=== PATIENT | female | born 1990 | race Hispanic/Latino ===

== ENCOUNTER 2017-11-18 03:09 | Inpatient (IN) | payer MEDICAID ==
[~2017-11-18] VITALS: Ht 149.9 cm; Wt 76.2 kg
[2017-11-18 03:35] LABS: APPEARANCE,URINE Turbid (CLEAR); BILIRUBIN,URINE Negative (NEGATIVE); COLOR,URINE Dark Yellow (YELLOW); GLUCOSE, URINE (UA) Negative (NEGATIVE); KETONES,URINE 15 mg/dL (NEGATIVE); LEUKOCYTE ESTERASE ,URINE Moderate (NEGATIVE); NITRATE,URINE Negative (NEGATIVE); OCCULT BLOOD,URINE Large (NEGATIVE); PH,URINE 6.5 (5.0-8.0); PROTEIN,URINE POS 1+ (NEGATIVE)
[2017-11-18 03:41] LABS: BACTERIA,URINE Many /HPF (None Seen); SQUAMOUS EPITHELIAL CELL,UR 30-50 /HPF (0-2)
[2017-11-18 03:42] LABS: RBC,URINE 0-1 /HPF (0-1)
[2017-11-18] MEDS ORDERED: LACTATED RINGERS 1000ML 1,000 ML IV PRN (03:48)
[2017-11-18] MEDS ORDERED: AMPICILLIN 2GM+NS 100ML 100 ML IV ONE (03:56)
[2017-11-18] MEDS ORDERED: LACTATED RINGERS 1000ML 1,000 ML IV ONE ×2 (03:56→04:28)
[2017-11-18 04:00] LABS: HEMATOCRIT 38.9 % (36-48); MEAN CORPUSCULAR HEMOGLOBIN 27.7 pg (27.0-33.0); MEAN CORPUSCULAR HGB CONC 33.7 g/dL (32.0-36.0); PLATELET COUNT (AUTO) 203 K/uL (130-400); RED BLOOD CELL COUNT(AUTO) 4.74 MIL/uL (4.00-5.50); RED CELL DISTRIBUTION WIDTH 29.2 % (11.0-15.5); WHITE BLOOD COUNT (AUTO) 12.5 K/uL (4.8-10.8)
[2017-11-18] MEDS ORDERED: AMPICILLIN 2GM+NS 100ML 100 ML IV SCH (04:00)
[2017-11-18] MEDS ORDERED: OXYTOCIN-LR 20 UNITS/1000 ML 1,000 ML IV SCH (04:15)
[2017-11-18] MEDS ORDERED: PROMETHAZINE HCL 25 MG/ML 1ML AMPULE IM SCH (04:15)
[2017-11-18] MEDS ORDERED: MEPERIDINE-PF 50 MG/ML SYG IVP ONE (04:15)
[2017-11-18] MEDS ORDERED: OXYTOCIN 10 USP UNITS/ML ONE ×2 (04:28→07:29)
[2017-11-18] MEDS ORDERED: BENZOCAINE/LANOLIN/ALOE VERA 60 ML AEROSOL TP PRN (05:15)
[2017-11-18] MEDS ORDERED: DIPH,PERTUSS(ACELL),TET VAC/PF 0.5 ML VIAL IM PRN (05:15)
[2017-11-18] MEDS ORDERED: WITCH HAZEL 1 PAD TP PRN (05:15)
[2017-11-18] MEDS ORDERED: HYDROCODONE/ACETAMINOPHEN 5/325 MG TAB PO PRN (05:15)
[2017-11-18] MEDS ORDERED: LANOLIN 30GM OINTMENT TP PRN (05:15)
[2017-11-18] MEDS: IBUPROFEN 600 MG TABLET PO PRN ×2 (06:03→17:07)
[2017-11-18 07:38] VITALS: BP 116/65
[2017-11-18] MEDS ORDERED: AMPICILLIN 1GM+NS 50ML 50 ML IV SCH (08:00)
[2017-11-18] MEDS: ACETAMINOPHEN-CODEINE 300/30MG TAB PO PRN ×2 (09:18→19:52)
[2017-11-18] MEDS: DOCUSATE SODIUM 100 MG CAP PO SCH ×2 (09:18→21:45)
[2017-11-18 09:29] LABS: HEMATOCRIT 36.4 % (36-48); MEAN CORPUSCULAR HGB CONC 32.7 g/dL (32.0-36.0); MEAN CORPUSCULAR VOLUME 82.5 fL (79-99); PLATELET COUNT (AUTO) 198 K/uL (130-400); RED BLOOD CELL COUNT(AUTO) 4.41 MIL/uL (4.00-5.50); RED CELL DISTRIBUTION WIDTH 28.7 % (11.0-15.5); WHITE BLOOD COUNT (AUTO) 15.2 K/uL (4.8-10.8)
[2017-11-18 11:26] VITALS: BP 110/50
[2017-11-18 15:37] VITALS: BP 104/60
[2017-11-18 19:23] VITALS: BP 115/61
[2017-11-18 23:22] VITALS: BP 103/68
[2017-11-19] MEDS: IBUPROFEN 600 MG TABLET PO PRN ×3 (03:15→20:49)
[2017-11-19 03:41] VITALS: BP 101/53
[2017-11-19] MEDS: ACETAMINOPHEN-CODEINE 300/30MG TAB PO PRN ×3 (04:15→18:41)
[2017-11-19 05:26] LABS: HEMATOCRIT 36.1 % (36-48); MEAN CORPUSCULAR HEMOGLOBIN 27.4 pg (27.0-33.0); MEAN CORPUSCULAR HGB CONC 32.8 g/dL (32.0-36.0); MEAN CORPUSCULAR VOLUME 83.3 fL (79-99); PLATELET COUNT (AUTO) 184 K/uL (130-400); RED BLOOD CELL COUNT(AUTO) 4.34 MIL/uL (4.00-5.50); WHITE BLOOD COUNT (AUTO) 13.4 K/uL (4.8-10.8)
[2017-11-19 07:20] VITALS: BP 118/67
[2017-11-19 07:38] LABS: HEPATITIS Bs ANTIGEN SCREEN P Negative (Negative)
[2017-11-19] MEDS: DOCUSATE SODIUM 100 MG CAP PO SCH ×2 (08:27→20:49)
[2017-11-19] MEDS: CLOTRIMAZOLE/BETAMETHASONE DIP 45 GM CREAM.GM. TP SCH (09:14)
[2017-11-19 11:31] VITALS: BP 105/63
[2017-11-19 15:56] VITALS: BP 105/59
[2017-11-19 20:41] VITALS: BP 114/63
[2017-11-19 23:48] VITALS: BP 131/85
[2017-11-20] MEDS: ACETAMINOPHEN-CODEINE 300/30MG TAB PO PRN (03:23)
[2017-11-20 05:00] VITALS: BP 126/73
[2017-11-20 07:58] VITALS: BP 100/61
[2017-11-20] MEDS: DOCUSATE SODIUM 100 MG CAP PO SCH (08:47)
[2017-11-20] MEDS: CLOTRIMAZOLE/BETAMETHASONE DIP 45 GM CREAM.GM. TP SCH (08:54)
[2017-11-20 11:29] VITALS: BP 122/74
[2017-11-20] MEDS: IBUPROFEN 600 MG TABLET PO PRN (11:51)
== END 2017-11-20 13:00 | disposition home or self-care (01) | DRG 560 ==
LOC: EDH 03:09 → LDH 03:10 → OBSVTOIN 03:10 → WSH 07:19
PROVIDERS: ADMIT Obstetrics & Gynecology; ATTEND Obstetrics & Gynecology
PROC: 10E0XZZ Delivery of Products of Conception, External Approach (ICD-10-PCS; principal; 2017-11-18)
PROC: 10907ZC Drainage of Amniotic Fluid, Therapeutic from Products of Conception, Via Natural or Artificial Opening (ICD-10-PCS; 2017-11-18)
DX: O99.824 Streptococcus B carrier state complicating childbirth (principal); Z37.0 Single live birth; Z3A.38 38 weeks gestation of pregnancy
CPT/HCPCS: 36415; 81001; 85027; 86592; 86850; 86900; 86901; 87340; 90715; J0290; J2175; J2550; J2590; J7120

== ENCOUNTER 2017-11-23 03:48 | Emergency (ER) | payer MEDICAID ==
[2017-11-23 04:13] LABS: APPEARANCE,URINE Clear (CLEAR); BILIRUBIN,URINE Negative (NEGATIVE); COLOR,URINE Yellow (YELLOW); GLUCOSE, URINE (UA) Negative (NEGATIVE); KETONES,URINE Negative (NEGATIVE); LEUKOCYTE ESTERASE ,URINE Trace (NEGATIVE); NITRATE,URINE Negative (NEGATIVE); OCCULT BLOOD,URINE Large (NEGATIVE); PROTEIN,URINE POS 2+ (NEGATIVE)
[2017-11-23 04:36] LABS: BACTERIA,URINE Few /HPF (None Seen); RBC,URINE 26-50 /HPF (0-1)
[2017-11-23 04:54] LABS: BASOPHILS % (AUTO) 0.5 % (0.0-5.0); EOSINOPHILS % (AUTO) 3.8 % (0.0-8.0); HEMATOCRIT 33.5 % (36-48); LYMPHOCYTES % (AUTO) 26.1 % (21.0-51.0); MEAN CORPUSCULAR HEMOGLOBIN 27.7 pg (27.0-33.0); MEAN CORPUSCULAR HGB CONC 33.5 g/dL (32.0-36.0); MEAN CORPUSCULAR VOLUME 82.7 fL (79-99); MONOCYTES % (AUTO) 7.6 % (3.0-13.0); PLATELET COUNT (AUTO) 219 K/uL (130-400); RED BLOOD CELL COUNT(AUTO) 4.05 MIL/uL (4.00-5.50); WHITE BLOOD COUNT (AUTO) 7.5 K/uL (4.8-10.8)
[2017-11-23 05:07] LABS: INR 0.93 (0.85-1.15); PARTIAL THROMBOPLASTIN TIME 30.3 SEC (26.3-35.5); PROTHROMBIN TIME 9.8 SEC (9.6-11.6)
[2017-11-23 05:17] LABS: CREATININE 0.7 mg/dL (0.5-1.5); POTASSIUM 3.4 mmol/L (3.5-5.1)
[2017-11-23 05:21] LABS: ALBUMIN 2.5 g/dL (3.5-5.0); BILIRUBIN,TOTAL 0.2 mg/dL (0.2-1.0); TOTAL PROTEIN, SERUM 6.3 g/dL (6.0-8.3)
[2017-11-23] MEDS ORDERED: IOPAMIDOL-370 100 ML VIAL IV ONE (06:08)
[2017-11-23] MEDS ORDERED: ACETAMINOPHEN 325 MG TAB ONE (07:42)
== END 2017-11-23 08:09 | disposition home or self-care (01) ==
LOC: EDH 03:48
DX: R07.9 Chest pain, unspecified (principal); R00.1 Bradycardia, unspecified; D64.9 Anemia, unspecified; Z90.49 Acquired absence of other specified parts of digestive tract; Z79.899 Other long term (current) drug therapy
CPT/HCPCS: 36415; 71045; 71275; 80053; 81001; 81025; 82550; 83690; 84484; 85025; 85378; 85610; 85730; 93005; 99291; Q9967

== ENCOUNTER 2021-04-02 10:16 | Emergency (ER) | payer MEDICAID, OTHER ==
[~2021-04-02] VITALS: Ht 149.9 cm; Wt 77.1 kg
[2021-04-02 10:17] VITALS: BP 123/146
[2021-04-02] MEDS ORDERED: ZOSYN 3.375GM+NS 50ML 50 ML IV SCH (11:30)
[2021-04-02] MEDS ORDERED: MEPERIDINE-PF 50 MG/ML SYG IVP ONE (11:30)
[2021-04-02] MEDS ORDERED: ONDANSETRON 4MG INJ IVP ONE (11:30)
[2021-04-02] MEDS ORDERED: ZOSYN 3.375GM+NS 50ML 3.38 GM in 0.9%NACL 50ML 50 ML IV ONE (11:30)
[2021-04-02] MEDS ORDERED: KETOROLAC 30MG VIAL (30MG/ML) IV ONE (11:30)
[2021-04-02] MEDS ORDERED: NAPR-1180 PO (11:41)
[2021-04-02] MEDS ORDERED: CLIN-141 PO (11:41)
== END 2021-04-02 13:14 | disposition home or self-care (01) ==
LOC: EDH 10:16
DX: K05.10 Chronic gingivitis, plaque induced (principal); Z79.1 Long term (current) use of non-steroidal anti-inflammatories (NSAID); Z79.899 Other long term (current) drug therapy
CPT/HCPCS: 96365; 96375; 99284; J1885; J2175; J2405; J2543

== ENCOUNTER 2023-10-23 18:23 | Emergency (ER) | payer MEDICAID ==
[~2023-10-23] VITALS: Ht 149.9 cm; Wt 70.3 kg
[~2023-10-23 18:23] MED LIST: CLIN-141 PO; NAPR-1180 PO
[2023-10-23 20:36] LABS: BASOPHILS # (AUTO) 0.03 K/uL (0.00-0.20); BASOPHILS % (AUTO) 0.3 % (0.0-5.0); EOSINOPHILS # (AUTO) 0.27 K/uL (0.00-0.70); EOSINOPHILS % (AUTO) 2.9 % (0.0-8.0); HEMATOCRIT 36.7 % (36-48); IMMATURE GRANULOCYTE ABSOLUTE 0.02 K/uL (0-1); LYMPHOCYTES # (AUTO) 1.2 K/uL (1.0-4.8); LYMPHOCYTES % (AUTO) 13.1 % (21.0-51.0); MEAN CORPUSCULAR HEMOGLOBIN 21.7 pg (27.0-33.0); MEAN CORPUSCULAR HGB CONC 29.4 g/dL (32.0-36.0); MEAN CORPUSCULAR VOLUME 73.7 fL (79-99); MONOCYTES # (AUTO) 0.5 K/uL (0.1-1.0); MONOCYTES % (AUTO) 5.9 % (3.0-13.0); NEUTROPHILS # (AUTO) 7.1 K/uL (1.8-7.7); NEUTROPHILS % (AUTO) 77.6 % (40.0-77.0); PLATELET COUNT (AUTO) 418 K/uL (130-400); RED BLOOD CELL COUNT(AUTO) 4.98 MIL/uL (4.00-5.50); RED CELL DISTRIBUTION WIDTH 17.8 % (11.0-15.5); WHITE BLOOD COUNT (AUTO) 9.2 K/uL (4.8-10.8)
[2023-10-23 21:02] LABS: CREATININE 0.8 mg/dL (0.5-1.0); POTASSIUM 3.5 mmol/L (3.5-5.1)
[2023-10-23 21:04] VITALS: BP 142/79; PULSE 84; RESP 18; O2SAT 98
[2023-10-23 21:07] LABS: ALBUMIN 3.2 g/dL (3.5-5.0); BILIRUBIN,TOTAL 0.4 mg/dL (0.2-1.0); TOTAL PROTEIN, SERUM 7.9 g/dL (6.0-8.3)
[2023-10-23] MEDS: ONDANSETRON 4MG INJ ONE (21:10)
[2023-10-23] MEDS: ONDANSETRON 4MG INJ IVP ONE (21:10)
[2023-10-23 21:12] LABS: HCG,QUALITATIVE URINE NEGATIVE (NEGATIVE)
[2023-10-23] MEDS: LACTATED RINGERS 1000ML 1,000 ML IV ONE (21:12)
[2023-10-23 21:14] LABS: ADD UA MICROSCOPIC YES; APPEARANCE,URINE CLOUDY (CLEAR); BILIRUBIN,URINE NEGATIVE (NEGATIVE); COLOR,URINE YELLOW (YELLOW); GLUCOSE, URINE (UA) NEGATIVE (NEGATIVE); KETONES,URINE NEGATIVE (NEGATIVE); LEUKOCYTE ESTERASE ,URINE 25 Leu/uL (NEGATIVE); NITRATE,URINE NEGATIVE (NEGATIVE); OCCULT BLOOD,URINE LARGE (NEGATIVE); PROTEIN,URINE 600 mg/dL (NEGATIVE); UROBILINOGEN,URINE 0.2 mg/dL (0.2-1.0)
[2023-10-23 21:30] LABS: BACTERIA,URINE Few /HPF (None Seen); SQUAMOUS EPITHELIAL CELL,UR Few /HPF (0-2)
[2023-10-23] MEDS ORDERED: CEPH500B PO (21:53)
== END 2023-10-23 22:00 | disposition home or self-care (01) ==
LOC: EDH 18:23
DX: K52.9 Noninfective gastroenteritis and colitis, unspecified (principal); N39.0 Urinary tract infection, site not specified
CPT/HCPCS: 99283; 96374; 96361; 82550; 84484; 80053; 83690; 85025; 81001; 81025; 36415; J7120; J2405